=== PATIENT | female | born 2000 | race Two or more races ===

== ENCOUNTER 2024-01-23 11:39 | Outpatient (CLI) | payer OTHER | END 2024-01-23 11:44 | disposition home or self-care (01) | LOC: PRENATAL 11:39 | PROVIDERS: ATTEND Obstetrics & Gynecology Maternal & Fetal Medicine | DX: O36.80X0 Pregnancy with inconclusive fetal viability, not applicable or unspecified (principal); Z36.82 Encounter for antenatal screening for nuchal translucency; O99.341 Other mental disorders complicating pregnancy, first trimester; Z14.8 Genetic carrier of other disease; Z3A.14 14 weeks gestation of pregnancy ==

== ENCOUNTER 2024-03-04 12:49 | Outpatient (CLI) | payer OTHER | END 2024-03-04 12:50 | disposition home or self-care (01) | LOC: PRENATAL 12:49 | PROVIDERS: ATTEND Obstetrics & Gynecology Maternal & Fetal Medicine | DX: O44.00 Complete placenta previa NOS or without hemorrhage, unspecified trimester (principal); O99.340 Other mental disorders complicating pregnancy, unspecified trimester; Z3A.21 21 weeks gestation of pregnancy ==

== ENCOUNTER → 2024-03-19 | Emergency (ER) | payer OTHER ==
[~2024-03-19] MED LIST: PRENATAL TABLE1 EAC1 PO
== END | disposition left against medical advice (07) ==
LOC: ER 20:01
DX: Z53.21 Procedure and treatment not carried out due to patient leaving prior to being seen by health care provider (principal)

== ENCOUNTER 2024-05-19 02:09 | Emergency (ER) | payer OTHER ==
[~2024-05-19] VITALS: Ht 160 cm; Wt 84.8 kg
[2024-05-19] MEDS ORDERED: FOLIC ACID20 MG (02:22)
[2024-05-19] MEDS ORDERED: FAMOTIDINE/PF 20 MG in 0.9 % SODIUM CHLORIDE 8 ML IV PUSH STA (02:42)
[2024-05-19] MEDS ORDERED: RINGERS SOLUTION,LACTATED 1,000 ML IV SCH (02:45)
[2024-05-19] MEDS ORDERED: ONDANSETRON HCL 2 MG/ML VIAL IV ONE (02:45)
[2024-05-19 03:38] LABS: HEMATOCRIT 32.5 % (36.0-45.00); MEAN CELL VOLUME 92.5 fL (80.00-100.00); MEAN CORPUSCULAR HEMOGLOBIN 31.2 pg (27.00-32.0); MEAN CORPUSCULAR HGB CONC 33.7 g/dl (32.0-36.0); PLATELET COUNT 189 K/uL (150-450); RED BLOOD COUNT 3.51 M/uL (4.00-6.00); RED CELL DISTRIBUTION WIDTH 13.1 % (11.5-14.5)
[2024-05-19 04:17] LABS: PH,URINE 5.5 (5.0-8.0); URINE APPEARANCE Clear; URINE BILIRRUBIN Negative (NEGATIVE); URINE BLOOD Negative; URINE COLOR Dark Yellow; URINE GLUCOSE Negative (NEGATIVE); URINE KETONE Trace (NEGATIVE); URINE LEUKOCYTE Negative; URINE NITRATE Negative; URINE PROTEIN Trace (NEGATIVE)
[2024-05-19 04:20] LABS: URINE BACTERIA 4150.1 uL (0.0-1933); URINE EPITHELIAL CELLS 39.5 uL (0.0-38.8); URINE RBC 2.7 uL (0.0-20.8); URINE WBC 35.5 uL (0.0-23.2)
[2024-05-19 04:22] LABS: ALBUMIN 2.8 gm/dL (3.4-5.0); BILIRUBIN TOTAL 0.2 mg/dL (0.3-1.2); CALCIUM 9.2 mg/dL (8.5-10.1); CREATININE SERUM 0.58 mg/dL (0.55-1.02); GFR 127.72; GLOBULINA 3.9 G/DL (2.4-3.5); POTASSIUM 3.87 mEq/L (3.5-5.1); TOTAL PROTEIN 6.7 gm/dL (6.4-8.2)
[2024-05-19 04:27] LABS: URINE CAST 0.91 uL (0.0-1.40)
[2024-05-19] MEDS ORDERED: MACRODANTIN100 M1 PO (04:35)
[2024-05-19] MEDS ORDERED: ONDANSETRON ODT8 MG PO (04:35)
[2024-05-19] MEDS ORDERED: PEPCID AC20 MG PO (04:35)
== END 2024-05-19 05:02 | disposition home or self-care (01) ==
LOC: ER 02:11
PROVIDERS: General Practice
DX: O23.43 Unspecified infection of urinary tract in pregnancy, third trimester (principal); N39.0 Urinary tract infection, site not specified; O21.9 Vomiting of pregnancy, unspecified; Z3A.31 31 weeks gestation of pregnancy; Z88.8 Allergy status to other drugs, medicaments and biological substances

== ENCOUNTER 2024-05-22 00:08 | Emergency (ER) | payer OTHER ==
[~2024-05-22] VITALS: Ht 160 cm; Wt 84.8 kg
[~2024-05-22 00:08] MED LIST changes: +FOLIC ACID20 MG; +MACRODANTIN100 M1 PO; +ONDANSETRON ODT8 MG PO; +PEPCID AC20 MG PO
[2024-05-22 00:46] VITALS: BP 99/67; O2SAT 100
[2024-05-22] MEDS ORDERED: ORPHENADRINE CITRATE 30 MG/ML AMPUL IM STA (04:19)
[2024-05-22] MEDS ORDERED: ACETAMINOPHEN 500 MG GEL..CAP PO STA (04:20)
== END 2024-05-22 04:48 ==
LOC: ER 00:09
DX: M94.0 Chondrocostal junction syndrome [Tietze] (principal); Z88.8 Allergy status to other drugs, medicaments and biological substances
CPT/HCPCS: 96372; 99282; J2360

== ENCOUNTER 2024-05-28 15:34 | Outpatient (CLI) | payer OTHER | END 2024-05-28 15:35 | disposition home or self-care (01) | LOC: PRENATAL 15:34 | PROVIDERS: ATTEND Obstetrics & Gynecology Maternal & Fetal Medicine | DX: O26.849 Uterine size-date discrepancy, unspecified trimester (principal); O36.8199 Decreased fetal movements, unspecified trimester, other fetus; O99.343 Other mental disorders complicating pregnancy, third trimester; Z3A.32 32 weeks gestation of pregnancy ==

== ENCOUNTER 2024-06-21 17:42 | Outpatient (CLI) | payer OTHER ==
[2024-06-21 16:50] VITALS: BP 107/68; BP 2107/68
[2024-06-21] MEDS ORDERED: RINGERS SOLUTION,LACTATED 1,000 ML IV SCH (18:15)
[2024-06-21 19:08] LABS: URINE APPEARANCE Clear; URINE BILIRRUBIN Negative (NEGATIVE); URINE BLOOD Negative; URINE COLOR Yellow; URINE GLUCOSE Negative (NEGATIVE); URINE KETONE Negative (NEGATIVE); URINE LEUKOCYTE Trace; URINE NITRATE Negative; URINE PROTEIN Negative (NEGATIVE); URINE UROBILINOGEN 0.2 E.U./dl
[2024-06-21 19:11] LABS: URINE BACTERIA 1540.8 uL (0.0-1933); URINE EPITHELIAL CELLS 64.5 uL (0.0-38.8); URINE WBC 44.3 uL (0.0-23.2)
[2024-06-21 19:13] LABS: URINE CAST 0.88 uL (0.0-1.40)
[2024-06-21 19:14] LABS: HEMATOCRIT 31.8 % (36.0-45.00); HEMOGLOBIN 10.9 g/dL (12.0-15.00); MEAN CELL VOLUME 91.2 fL (80.00-100.00); MEAN CORPUSCULAR HEMOGLOBIN 31.3 pg (27.00-32.0); MEAN CORPUSCULAR HGB CONC 34.3 g/dl (32.0-36.0); PLATELET COUNT 188 K/uL (150-450); RED BLOOD COUNT 3.48 M/uL (4.00-6.00); RED CELL DISTRIBUTION WIDTH 13.6 % (11.5-14.5)
[2024-06-21 19:28] LABS: INR < 0.93; PARTIAL THROMBOPLASTIN TIME 25.7 SECONDS (22.0-34.0); PROTHROMBIN TIME 10.2 SECONDS (9.0-11.5)
[2024-06-21 20:19] VITALS: BP 116/81
[2024-06-21] MEDS ORDERED: CEFAZOLIN SODIUM 1,000 MG VIAL IV SCH (21:00)
[2024-06-21 23:09] VITALS: BP 102/68
[2024-06-22 03:47] VITALS: BP 101/70
[2024-06-22 07:24] VITALS: BP 108/70
[2024-06-22 14:48] VITALS: BP 110/69
== END 2024-06-22 02:17 | disposition home or self-care (01) ==
LOC: OBS/DEL 17:42
PROVIDERS: ATTEND Obstetrics & Gynecology
DX: O23.43 Unspecified infection of urinary tract in pregnancy, third trimester (principal); N39.0 Urinary tract infection, site not specified; Z3A.36 36 weeks gestation of pregnancy

== ENCOUNTER 2024-07-01 09:30 | Inpatient (IN) | payer OTHER ==
[~2024-07-01] VITALS: Ht 160 cm; Wt 3.6 kg
[2024-07-16 15:19] VITALS: BP 124/80
[2024-07-16] MEDS ORDERED: FOLIC ACID0.8 M1 PO (15:51)
[2024-07-16] MEDS ORDERED: MORPHINE SULFATE 4 MG/ML CARTRIDGE IV ONE (16:00)
[2024-07-16] MEDS ORDERED: OXYTOCIN 500 ML IV ONE (16:00)
[2024-07-16] MEDS ORDERED: RINGERS SOLUTION,LACTATED 1,000 ML IV SCH (16:00)
[2024-07-16] MEDS ORDERED: PROMETHAZINE HCL 50 MG/ML AMPUL IM ONE (16:09)
[2024-07-16] MEDS ORDERED: PROMETHAZINE HCL 50 MG/ML AMPUL IV ONE (16:15)
[2024-07-16] MEDS ORDERED: MEPERIDINE HCL/PF 50 MG/ML VIAL IV ONE (16:15)
[2024-07-16 16:42] LABS: PH,URINE 5.5 (5.0-8.0); URINE APPEARANCE Clear; URINE BILIRRUBIN Negative (NEGATIVE); URINE BLOOD Negative; URINE COLOR Dark Yellow; URINE GLUCOSE Negative (NEGATIVE); URINE KETONE Negative (NEGATIVE); URINE LEUKOCYTE Trace; URINE NITRATE Negative; URINE PROTEIN Negative (NEGATIVE)
[2024-07-16 16:44] LABS: URINE BACTERIA 394.1 uL (0.0-1933); URINE EPITHELIAL CELLS 34.3 uL (0.0-38.8); URINE RBC 7.3 uL (0.0-20.8)
[2024-07-16 16:47] LABS: HEMATOCRIT 36.1 % (36.0-45.00); HEMOGLOBIN 12.1 g/dL (12.0-15.00); MEAN CELL VOLUME 91.8 fL (80.00-100.00); MEAN CORPUSCULAR HEMOGLOBIN 30.8 pg (27.00-32.0); MEAN CORPUSCULAR HGB CONC 33.6 g/dl (32.0-36.0); PLATELET COUNT 175 K/uL (150-450); RED BLOOD COUNT 3.93 M/uL (4.00-6.00); RED CELL DISTRIBUTION WIDTH 13.8 % (11.5-14.5)
[2024-07-16 16:53] LABS: URINE CAST 0.88 uL (0.0-1.40)
[2024-07-16 17:09] LABS: INR < 0.93; PARTIAL THROMBOPLASTIN TIME 27.8 SECONDS (22.0-34.0)
[2024-07-16 17:13] LABS: ALBUMIN 2.8 gm/dL (3.4-5.0); BILIRUBIN TOTAL 0.42 mg/dL (0.3-1.2); CREATININE SERUM 0.82 mg/dL (0.55-1.02); GFR 85.65; GLOBULINA 3.6 G/DL (2.4-3.5); POTASSIUM 4.13 mEq/L (3.5-5.1); TOTAL PROTEIN 6.4 gm/dL (6.4-8.2)
[2024-07-16 20:18] VITALS: BP 144/79
[2024-07-16] MEDS ORDERED: OXYTOCIN 10 UNITS/ML VIAL ONE (20:57)
[2024-07-16] MEDS ORDERED: ERYTHROMYCIN BASE OPHT 1GM EACH TUBE OP ONE (20:58)
[2024-07-16] MEDS ORDERED: CEFAZOLIN SODIUM 1,000 MG VIAL ONE (21:26)
[2024-07-16] MEDS ORDERED: PROMETHAZINE HCL 50 MG/ML AMPUL IM PRN (22:15)
[2024-07-16] MEDS ORDERED: MEPERIDINE HCL/PF 50 MG/ML VIAL IM PRN (22:15)
[2024-07-16] MEDS ORDERED: MORPHINE SULFATE 4 MG/ML VIAL IV ONE ×2 (22:40→23:55)
[2024-07-17] MEDS ORDERED: MEPERIDINE HCL 25 MG/ML AMPUL IV ONE (01:15)
[2024-07-17 02:04] VITALS: BP 119/76
[2024-07-17 06:15] VITALS: BP 109/70
[2024-07-17 06:58] LABS: HEMATOCRIT 31.5 % (36.0-45.00); HEMOGLOBIN 10.9 g/dL (12.0-15.00); MEAN CELL VOLUME 91.1 fL (80.00-100.00); MEAN CORPUSCULAR HEMOGLOBIN 31.6 pg (27.00-32.0); MEAN CORPUSCULAR HGB CONC 34.7 g/dl (32.0-36.0); PLATELET COUNT 170 K/uL (150-450); RED BLOOD COUNT 3.46 M/uL (4.00-6.00)
[2024-07-17] MEDS ORDERED: PNV,CALCIUM 72/IRON/FOLIC ACID 1 TAB TABLET PO SCH (08:00)
[2024-07-17] MEDS ORDERED: SIMETHICONE 125 MG CAPSULE PO SCH (08:00)
[2024-07-17] MEDS ORDERED: DOCUSATE SODIUM 100MG CAP PO SCH (08:00)
[2024-07-17] MEDS ORDERED: OxyCODONE HCL/APAP UD (PERCOCET) PO PRN (08:00)
[2024-07-17 08:11] VITALS: BP 110/75
[2024-07-17 15:39] VITALS: BP 124/86
[2024-07-18 00:33] VITALS: BP 101/66
[2024-07-18 08:22] VITALS: BP 130/80
[2024-07-18 16:00] VITALS: BP 110/75
[2024-07-19] VITALS: BP 100/58
[2024-07-19 09:01] VITALS: BP 121/80
[2024-07-19 15:59] VITALS: BP 115/80
== END 2024-07-19 16:52 | disposition home or self-care (01) | DRG 788 ==
LOC: LDR 07-16 15:42 → OB/GYN 07-16 15:42 → O/R 07-16 21:55 → OB/GYN 07-16 23:16
PROVIDERS: ADMIT Obstetrics & Gynecology; ATTEND Obstetrics & Gynecology
PROC: 4A1HXCZ Monitoring of Products of Conception, Cardiac Rate, External Approach (ICD-10-PCS; 2024-07-16)
PROC: 10D00Z1 Extraction of Products of Conception, Low, Open Approach (ICD-10-PCS; principal; 2024-07-16 21:30)
DX: O82 Encounter for cesarean delivery without indication (principal); O36.63X0 Maternal care for excessive fetal growth, third trimester, not applicable or unspecified; O69.81X0 Labor and delivery complicated by cord around neck, without compression, not applicable or unspecified; O33.5XX0 Maternal care for disproportion due to unusually large fetus, not applicable or unspecified; O62.1 Secondary uterine inertia; Z3A.39 39 weeks gestation of pregnancy; Z37.0 Single live birth; Z20.822 Contact with and (suspected) exposure to COVID-19